=== PATIENT | female | born 1980 | race Two or more races ===

== ENCOUNTER 2023-09-27 08:07 | Outpatient (CLI) | payer OTHER ==
--- NOTE | 2023-09-27 16:48 | Ultrasound Report ---
PROCEDURE: Pelvic w/Transvaginal INDICATIONS: UTERINE FIBROIDS TECHNIQUE: Real-time scanning was performed of the pelvic organs, with image documentation. Additional endovagi nal scanning was necessary due to incomplete visualization of the adnexal and endometrial structures by transabdominal scanning. COMPARISON: None. FINDINGS: Uterus: Uterus is anteverted and normal in size at 7.5 x 3.1 x 5.4 cm. The myometrium is homogeneou s. The endometrium measures 8.9 mm in combined thickness. Ovaries: The right ovary measures 4.2 x 3.4 x 3.1 cm, with a calculated ovarian volume of 22.2 cc. The left ovary measures 2.5 x 1.4 x 2.0 cm, with a calculated ovarian volume of 3.6 cc. Simple cysts are present bilaterally the largest is on the right measuring 3.7 x 3.0 x 3.3 cm. Other: No pathologic free abdominal or pelvic fluid. IMPRESSION: Bilateral simple ovarian cysts the largest measuring 3.7 cm. Reviewed by: Naomi King MD on 09/27/2023 4:46 PM PDT Approved by: Naomi King MD on 09/27/2023 4:46 PM PDT Station ID: [id number]
== END 2023-09-27 08:08 | disposition home or self-care (01) ==
LOC: DI 08:07
PROVIDERS: ATTEND Nurse Practitioner
DX: N83.292 Other ovarian cyst, left side (principal); N83.291 Other ovarian cyst, right side